=== PATIENT | male | born 1985 | race Caucasian/White ===

== ENCOUNTER 2016-04-08 15:12 | Emergency (ER) | payer BC ==
--- NOTE | 2016-04-08 17:00 | DI ---
HISTORY: Fell. Left hip pain. COMPARISON: None available. FINDINGS: Examination of the pelvis and left hip reveals no definite evidence of fracture or disloca tion. IMPRESSION: 1. No definite evidence of fracture or dislocation.
[2016-04-08 17:51] VITALS: RESP 18; TEMP 98.3
--- NOTE | 2016-04-08 22:16 | PDOC ---
Hip Injury/Pain HPI - General Chief Complaint: Lower Extremity Problem/Injury Stated Complaint: HIP PAIN Date Seen by Provider: 04/08/16 Time Seen by Provider: 15:10 Source: POSITIVE: Patient Exam Limitations: POSITIVE: No limitations Nurse's Notes Reviewed & Considered: Yes - History of Present Illness Initial Comments: The patient is a 30-year-old male who presents to the emergency department with left hip pain. He states that he slipped on the ice and landed squarely on his left hip. He has pain primarily to the left hip region. He is able to bear some weight however he does have pain with walking. He denies hitting his head and denies any other associated injury or complaint. He denies neck or back pain. He denies radiation of pain down his leg, numbness or weakness in the leg. Have you received a tetanus shot in the past 10 years?: Yes - Patient Home Medications Home Medications: Home Medications Cetirizine HCl [Zyrtec] 10 mg ORAL QD tab 04/19/11 [place]-3 Fatty Acids/Fish Oil [Fish Oil 1,000 Mg Softgel] 2 cap PO QD #60 cap Albuterol Sulfate [Proair Hfa] 1 - 2 puff INH Q4H #1 inhaler 01/12/15 Niacin [Niaspan] 500 mg PO DAILY #30 tab 02/20/16 Ezetimibe [Zetia] 10 mg PO DAILY #30 tab 02/28/16 Simvastatin 1 tab PO DAILY #30 tab 02/28/16 HYDROcodone/APAP 5/325 Tab [[place] 5/325 Tab] 1 each PO Q4H PRN #10 tablet - Patient Allergies Allergies/Adverse Reactions: Allergies Allergy/AdvReac Type Severity Reaction Status Date / Time Penicillins Allergy HIVES Verified 04/08/16 15:19 Past Medical History - heen HEENT History: Denies History Cardiovascular History: Hypertension, Hyperlipidemia Respiratory History: Asthma, Pneumonia, Other (please comment) Additional Respiratory History: BRONCHITIS Gastrointestinal History: Denies History Genitourinary History: Denies History Endocrine History: Denies History Musculoskeletal History: Denies History Prosthesis or Implant: No Neurological History: Denies History Blood Disorders: Denies History Psychiatric History: Denies History History of Sexually Transmitted Diseases: No Cancer History: Denies History In Past Year Been Physically Harmed or Verbally Threatened: No (PER PATIENT) History of MDRO: No History of Other Communicable Diseases: No Tobacco Use: Current Every Day Smoker Alcohol Use: Occasionally Substance Use Type: None Previous Surgical History: Yes Type / Date of Surgery: HAND AND HERNIA REPAIR Anesthesia Reactions: No Malignant Hyperthermia: No Family History of Malignant Hyperthermia: No Significant Family History: No pertinent family hx Past Medical History Reviewed: Reviewed - No Changes ROS - Limitations ROS Limitations: No Limitations (Review of systems otherwise noncontributory) Hip Injury / Pain Exam - General Appearance General Appearance: POSITIVE: Alert, Cooperative, No Acute Distress - Lower Extremity Extremities: POSITIVE: Other (Examination of the left hip does reveal tenderness right over the greater trochanter of the left hip, there is no significant swelling, some mild bruising, pelvis is otherwise stable, extremities are otherwise within normal limits) - HEENT HEENT: POSITIVE: Head Inspection Nml - Respiratory / CVS Cardiovascular: POSITIVE: Regular Rate and Rhythm, Heart Sounds Normal Respiratory: POSITIVE: Chest Non Tender, Breath Sounds Normal, No Respiratory Distress Hip Injury / Pain Progress - Results Reviewed by me Xrays/CTs/US Reviewed by me: Yes Radiology Findings: X-ray the left hip is negative for fracture - Patient's Progress MDM / ED Course: X-ray findings were discussed with the patient. There is no visible fracture. This likely represents contusion. He was advised to continue ice to the region. He was advised to take ibuprofen 600 mg every 6 hours as needed for pain and was given [place] 5/325 as needed for more severe pain. He was given a note not to work for the next 3 days and then he has a weak cough. He will return to the emergency room if he develops increased pain or worsening. He was advised follow-up with orthopedic surgery if continued pain in 3-5 days. - Consult Counseled: POSITIVE: Patient, Family, RE: Radiology Results, RE: DX, RE: Need for F/U Patient Care Time - Estimated PCT Patient Care Time (In Minutes): 15 Vital Signs - Recent Vital Signs Vital Signs: Vital Signs (Last 8 hours) Temp Pulse Resp BP Pulse Ox 04/08/16 15:05 98.3 F 74 18 113/71 97 - VS Reviewed Vital Signs Reviewed: Yes Discharge Clinical Impression: Contusion, hip Condition: Stable Prescriptions / Orders: HYDROcodone/APAP 5/325 Tab [[place] 5/325 Tab] 1 each PO Q4H PRN #10 tablet PRN Reason: Pain Patient Instructions Given at Discharge: Contusion in Adults (ED) Additional Instructions: The x-ray of the left hip does not show any obvious fracture. This likely represents a deep bruise. Recommend ice to help reduce inflammation. You can take ibuprofen 600 mg every 6 hours as needed for pain. In addition you were given a prescription for [place] 5/325 which she can take one every 4-6 hours as needed for pain. Return to the emergency room if increased pain, any worsening or change in symptoms. Recommend follow-up with orthopedic surgery if continued pain in one week. Follow Up With: UMESH VICENTE [Primary Care Provider] -
== END 2016-04-08 16:15 | disposition home or self-care (01) ==
LOC: ER 15:12
DX: S70.02XA Contusion of left hip, initial encounter (principal); F17.210 Nicotine dependence, cigarettes, uncomplicated; W00.0XXA Fall on same level due to ice and snow, initial encounter
CPT/HCPCS: 73502; 99282